=== PATIENT | female | born 1995 | race Caucasian/White ===

== ENCOUNTER 2024-06-23 17:32 | Emergency (ER) | payer MEDICAID, OTHER ==
[~2024-06-23] VITALS: Ht 157.5 cm; Wt 54.4 kg
[2024-06-23 17:37] VITALS: BP 163/99; PULSE 92; RESP 20; TEMP 99.2; O2SAT 98
[2024-06-23] MEDS ORDERED: BEN10 PO (18:04)
[2024-06-23] MEDS ORDERED: ONDA-188 PO (18:04)
[2024-06-23] MEDS: ONDANSETRON 4 MG ODT PO ONE (18:17)
== END 2024-06-23 18:27 | disposition home or self-care (01) ==
LOC: MED 17:32
DX: A08.4 Viral intestinal infection, unspecified (principal); Z79.899 Other long term (current) drug therapy; Z91.013 Allergy to seafood
CPT/HCPCS: 99283; Q0162